=== PATIENT | female | born 1945 | race Caucasian/White ===

== ENCOUNTER 2017-03-28 13:30 | Emergency (ER) | payer MEDICARE ==
[2017-03-28 14:52] LABS: BASOPHILS % (AUTO) 0.6 % (0.0-5.0); HEMATOCRIT 37.7 % (36-48); LYMPHOCYTES % (AUTO) 11.8 % (21.0-51.0); MEAN CORPUSCULAR HGB CONC 34.3 g/dL (32.0-36.0); MEAN CORPUSCULAR VOLUME 96.2 fL (79-99); MONOCYTES % (AUTO) 12.9 % (3.0-13.0); NEUTROPHILS % (AUTO) 73.7 % (40.0-77.0); PLATELET COUNT (AUTO) 303 K/uL (130-400); RED BLOOD CELL COUNT(AUTO) 3.92 MIL/uL (4.00-5.50); RED CELL DISTRIBUTION WIDTH 13.9 % (11.0-15.5); WHITE BLOOD COUNT (AUTO) 6.1 K/uL (4.8-10.8)
[2017-03-28 15:09] LABS: CREATININE 0.8 mg/dL (0.5-1.5); POTASSIUM 3.8 mmol/L (3.5-5.1)
[2017-03-28 15:13] LABS: ALBUMIN 3.6 g/dL (3.5-5.0); BILIRUBIN,TOTAL 0.3 mg/dL (0.2-1.0)
[2017-03-28 15:26] LABS: B-TYPE NATRIURETIC PEPTIDE 7 pg/mL (0-100)
[2017-03-28] MEDS ORDERED: OSELTAMIVIR PHOSPHATE 75 MG CAP ONE (16:50)
== END 2017-03-28 18:09 | disposition home or self-care (01) ==
LOC: EDH 13:30
DX: J10.1 Influenza due to other identified influenza virus with other respiratory manifestations (principal); D84.9 Immunodeficiency, unspecified; I10 Essential (primary) hypertension; Z98.890 Other specified postprocedural states
CPT/HCPCS: 36415; 71020; 80053; 83880; 84484; 85025; 87804; 93005

== ENCOUNTER 2018-03-25 09:52 | Emergency (ER) | payer MEDICARE ==
[2018-03-25 10:32] LABS: BASOPHILS % (AUTO) 0.4 % (0.0-5.0); HEMATOCRIT 35.8 % (36-48); LYMPHOCYTES % (AUTO) 11.5 % (21.0-51.0); MEAN CORPUSCULAR HEMOGLOBIN 32.8 pg (27.0-33.0); MEAN CORPUSCULAR VOLUME 96.4 fL (79-99); MONOCYTES % (AUTO) 12.8 % (3.0-13.0); NEUTROPHILS % (AUTO) 73.3 % (40.0-77.0); PLATELET COUNT (AUTO) 244 K/uL (130-400); RED BLOOD CELL COUNT(AUTO) 3.71 MIL/uL (4.00-5.50); RED CELL DISTRIBUTION WIDTH 13.9 % (11.0-15.5); WHITE BLOOD COUNT (AUTO) 5.7 K/uL (4.8-10.8)
[2018-03-25 10:33] LABS: APPEARANCE,URINE Clear (CLEAR); BILIRUBIN,URINE Negative (NEGATIVE); COLOR,URINE Yellow (YELLOW); GLUCOSE, URINE (UA) Negative (NEGATIVE); KETONES,URINE Negative (NEGATIVE); LEUKOCYTE ESTERASE ,URINE Negative (NEGATIVE); NITRATE,URINE Negative (NEGATIVE); OCCULT BLOOD,URINE Negative (NEGATIVE); PH,URINE 7.5 (5.0-8.0); PROTEIN,URINE Negative (NEGATIVE); UROBILINOGEN,URINE 0.2 mg/dL (0.2-1.0)
[2018-03-25 10:47] LABS: CREATININE 0.7 mg/dL (0.5-1.5); POTASSIUM 4.4 mmol/L (3.5-5.1)
[2018-03-25 10:51] LABS: ALBUMIN 3.7 g/dL (3.5-5.0); BILIRUBIN,TOTAL 0.3 mg/dL (0.2-1.0); TOTAL PROTEIN, SERUM 8.1 g/dL (6.0-8.3)
[2018-03-25 10:54] LABS: RAPID GROUP A STREP NEGATIVE (NEGATIVE)
[2018-03-25 11:32] LABS: INR 0.94 (0.85-1.15); PROTHROMBIN TIME 9.9 SEC (9.6-11.6)
[2018-03-25] MEDS ORDERED: ACETAMINOPHEN 325 MG TAB ONE (12:33)
== END 2018-03-25 13:58 | disposition home or self-care (01) ==
LOC: EDH 09:52
DX: C85.90 Non-Hodgkin lymphoma, unspecified, unspecified site (principal); D80.3 Selective deficiency of immunoglobulin G [IgG] subclasses; R50.9 Fever, unspecified; I10 Essential (primary) hypertension; Z90.710 Acquired absence of both cervix and uterus; Z98.890 Other specified postprocedural states
CPT/HCPCS: 36415; 71045; 80053; 81003; 82550; 83605; 84484; 85025; 85610; 85730; 87040; 87804; 87880; 93005

== ENCOUNTER → 2023-05-03 | Outpatient (CLI) | payer OTHER | END | disposition home or self-care (01) | LOC: OIH 08:25 | PROVIDERS: ATTEND Nurse Practitioner Adult Health | DX: Z13.6 Encounter for screening for cardiovascular disorders (principal) | CPT/HCPCS: 75571 ==

== ENCOUNTER → 2023-06-10 | Outpatient (CLI) | payer MEDICARE | END | disposition home or self-care (01) | LOC: SHCH 14:02 | PROVIDERS: ATTEND Internal Medicine Cardiovascular Disease | DX: I65.23 Occlusion and stenosis of bilateral carotid arteries (principal); I10 Essential (primary) hypertension; R07.9 Chest pain, unspecified; Z79.899 Other long term (current) drug therapy | CPT/HCPCS: 93880 ==

== ENCOUNTER → 2023-06-14 | Outpatient (CLI) | payer MEDICARE ==
[2023-06-14] MEDS: REGADENOSON 0.4 MG/5 ML PF SYG IVP ONE (14:50)
== END | disposition home or self-care (01) ==
LOC: SHCH 08:06
PROVIDERS: ATTEND Internal Medicine Cardiovascular Disease
DX: I35.9 Nonrheumatic aortic valve disorder, unspecified (principal); R07.9 Chest pain, unspecified; I10 Essential (primary) hypertension
CPT/HCPCS: 78452; 96374; 93017; J2785; A9500 ×2

== ENCOUNTER → 2023-06-22 | Outpatient (CLI) | payer MEDICARE | END | disposition home or self-care (01) | LOC: SHCH 08:11 | PROVIDERS: ATTEND Internal Medicine Cardiovascular Disease | DX: I35.0 Nonrheumatic aortic (valve) stenosis (principal); I35.8 Other nonrheumatic aortic valve disorders; I10 Essential (primary) hypertension; R07.9 Chest pain, unspecified | CPT/HCPCS: 93306 ==

== ENCOUNTER → 2024-04-05 | Outpatient (CLI) | payer MEDICARE ==
--- NOTE | 2024-04-06 08:10 | HMCSR ---
APPROVED REPORT EXAM: Two-dimensional and M-mode echocardiogram with Doppler and color Doppler. INDICATION ICD: I10.0 Essential (primary) Hypertension 2D Dimensions RVDd4.2 cmLVEF(%)57.7 (>50%)LVED Vol(simp.)112.0 mL IVSd1.2 (0.7-1.1cm)FS(%)30 %LVES Vol(simp.)48.0 mL LVDd4.2 (3.8-5.6cm)Ao Root(2D)3.3 (2.0-3.7cm)LVEF(%, simp.)57 % PWd1.2 (0.7-1.1cm)LVOT diam1.9 (1.8-2.4cm)LA ESV INDEX (BP)37.95 mL/m2 LVDs2.9 (2.5-4.0cm)IVC diam1.9 cm Aortic Valve AoV Vmax1.8 m/Ethan Peak GR13.0 mmHgLVOT Vmax1.3 m/s AoV VTI0.4 mAo Mean GR7.1 mmHgLVOT VTI0.31 m JUANCARLOS (VMAX)1.9 cm2Al P1/2T327 msAVA (VTI) 1.9 cm2 Mitral Valve MV E Vmax90.0 cm/sDECEL Axqb337 ms MV A Muvn225.0 cm/sP 1/2 T54 ms E/A ratio0.7MVA (PHT)4.0 cm2 MR Max PG128 mmHg TDI E/E' Gvnvux55.3E/E' Dpuznap77.2 Pulmonary Valve PV Vmax1.3 m/sPV VTI0.26 mPV Mean GR4 mmHg PV Peak GR6.5 mmHg Tricuspid Valve TR Vmax2.1 m/sRAP (EST) 8 wwIkQCNS06.4 mmHg TR Peak GR18.4 mmHg Left Ventricle Left ventricular cavity size is normal. There is normal LV segmental wall motion. There is mild christian ntric left ventricular hypertrophy. LVEF is 55-60%. No left ventricle thrombus noted on this study. G rade 1 diastolic dysfunction Right Ventricle The right ventricle is normal size. The right ventricular systolic function is normal. Atria The left atrium is mildly dilated. The right atrium size is normal. Aortic Valve Aortic valve is trileaflet. Aortic valve is mildly calcified. Trace aortic regurgitation. Calculated aortic valve area is 1.9 cm2 with maximum pressure gradient of 13 mmHg and mean pressure gradient of 7.1 mmHg. Mitral Valve Mitral valve leaflets are mildly sclerotic but opens well. Mitral annular calcification is mild. Mitr al regurgitation is trace to mild. There is no mitral valve stenosis. Tricuspid Valve The tricuspid valve leaflets appear normal. There is trace tricuspid regurgitation. Pulmonic Valve Pulmonic valve is not well visualized. There is trace pulmonic valvular regurgitation. Great Vessels The aortic root is normal in size. IVC is dilated and collapses >50% with inspiration. Pericardium No pericardial effusion. Conclusion Left ventricular cavity size is normal. There is mild concentric left ventricular hypertrophy. LVEF is 55-60%. Grade 1 diastolic dysfunction The right ventricle is normal size. The left atrium is mildly dilated. Aortic valve is trileaflet. Aortic valve is mildly calcified. Trace aortic regurgitation. Calculated aortic valve area is 1.9 cm2 with maximum pressure gradient of 13 mmHg and mean pressure g radient of 7.1 mmHg. Mitral valve leaflets are mildly sclerotic but opens well. Mitral annular calcification is mild. Mitral regurgitation is trace to mild. There is trace tricuspid regurgitation. There is trace pulmonic valvular regurgitation. The aortic root is normal in size. IVC is dilated and collapses >50% with inspiration. No pericardial effusion.
--- NOTE | 2024-04-06 08:11 | HMCSR ---
APPROVED REPORT Bilateral Lower Extremity Venous Study for DVT., Venous Competence. Indications Lower Extremity Edema: , i87.1, i87.2 Vein Imaging CFV (R): Normal flow, augmentation and compression. No evidence of DVT. 10.7mm 1533ms of reflux. SFJ (R): Normal flow, augmentation and compression. No evidence of DVT. FEM (R): Normal flow, augmentation and compression. No evidence of DVT. POP (R): Normal flow, augmentation and compression. No evidence of DVT. 2939ms of reflux. DFV (R): Normal flow, augmentation and compression. No evidence of DVT. PTV (R): Normal flow, augmentation and compression. No evidence of DVT. Peroneals (R): Normal flow, augmentation and compression. No evidence of DVT. CFV (L): Normal flow, augmentation and compression. No evidence of DVT. 11.9mm 1139ms of reflux. SFJ (L): Normal flow, augmentation and compression. No evidence of DVT. FEM (L): Normal flow, augmentation and compression. No evidence of DVT. POP (L): Normal flow, augmentation and compression. No evidence of DVT. DFV (L): Normal flow, augmentation and compression. No evidence of DVT. PTV (L): Normal flow, augmentation and compression. No evidence of DVT. Peroneals (L): Normal flow, augmentation and compression. No evidence of DVT. Technologist Impression Deep veins of the bilateral lower extremiteis appear patent and compressible without thrombus. Deep venous reflux noted in the RCFV, RPopliteal and LCFV. Superficial venous insufficiency noted in the residual RGSV, residual RSSV and LGSV at junction. RGSV junction 5.6mm 2039ms thigh - not seen knee 4.2mm 3756ms calf 3.1mm 0.0ms RSSV prox - not seen mid 2.8mm 1661ms LGSV junction 5.8mm 1000ms thigh - not seen knee- not seen calf 3.9mm 0.0ms LSSV prox - not seen mid 2.8mm 0.0ms Conclusion Deep veins of the bilateral lower extremiteis appear patent and compressible without thrombus. Deep venous reflux noted in the RCFV, RPopliteal and LCFV. Superficial venous insufficiency noted in the residual RGSV, residual RSSV and LGSV at junction. Conclusion Deep veins of the bilateral lower extremiteis appear patent and compressible without thrombus. Deep venous reflux noted in the RCFV, RPopliteal and LCFV. Superficial venous insufficiency noted in the residual RGSV, residual RSSV and LGSV at junction.
== END | disposition home or self-care (01) ==
LOC: SHCH 07:34
PROVIDERS: ATTEND Internal Medicine Cardiovascular Disease
DX: I08.0 Rheumatic disorders of both mitral and aortic valves (principal); I11.9 Hypertensive heart disease without heart failure; I70.0 Atherosclerosis of aorta; I87.2 Venous insufficiency (chronic) (peripheral); I87.1 Compression of vein
CPT/HCPCS: 93306; 93970

== ENCOUNTER → 2024-04-21 | Outpatient (CLI) | payer MEDICARE ==
--- NOTE | 2024-04-25 11:43 | HMCSR ---
APPROVED REPORT Indications Postprandial abdominal pain Assessment Origin Proximal Mid D istal Superior Mesenteric A. PSV 208.80cm/s PSV 263.10cm/s PSV 296.40cm/s EDV 40.80cm/s EDV 25.90cm/s EDV 3 3.60cm/s Ratio 1.32Ratio 1.66Ratio 1.87 Celiac [place] PSV 181.30cm/s PSV 118.80cm/s PSV 162.20cm/s EDV 47.00cm/s EDV 51.70cm/s EDV 3 6.40cm/s Ratio 1.14Ratio 0.75Ratio 1.02 Inferior Mesenteric A. PSV 272.00cm/s PSV 232.10cm/s PSV 201.40cm/s Ratio 1.72Ratio 1.63Ratio 1.41 Aortic Duplex A/PTransverseLongitudinal Proximal Aorta 1.78cm1.72cm1.57cm Mid Aorta 1.21cm1.25cm1.12cm Distal Aorta 1.15cm1.47cm1.34cm Aortic Doppler VelocityWaveform Proximal Aorta 158.50 cm/sec Aorta Mid. 125.40 cm/sec Distal Aorta 142.00 cm/sec Technologist Impression Imaging reveals patent mesenteric arteries. No evidence of significant stenosis and/or occlusion. Normal flow visualized. Dimensions of the aorta are within normal limits, although atherosclerotic plaque is noted with veloc ites >100 cm/sec. Conclusion Imaging reveals patent mesenteric arteries. No evidence of significant stenosis and/or occlusion. Normal flow visualized. Dimensions of the aorta are within normal limits, although atherosclerotic plaque is noted with veloc ites >100 cm/sec. Conclusion Imaging reveals patent mesenteric arteries. No evidence of significant stenosis and/or occlusion. Normal flow visualized. Dimensions of the aorta are within normal limits, although atherosclerotic plaque is noted with veloc ites >100 cm/sec.
--- NOTE | 2024-04-25 11:49 | HMCSR ---
APPROVED REPORT Laterality: Bilateral Indications r09.89 Doppler Spectral Velocity Analysis PSV / EDVPSV / EDV ECA (R) 145 / cm/sECA (L) 143 / cm/s dICA (R) 123 / 48 cm/sdICA (L) 123 / 42 cm/s Juan (R) 131 / 20 cm/smICA (L) 95 / 33 cm/s pICA (R) 183 / 46 cm/spICA (L) 113 / 36 cm/s dCCA (R) 99 / 31 cm/sdCCA (L) 87 / 26 cm/s mCCA (R) 64 / 18 cm/smCCA (L) 84 / 17 cm/s pCCA (R) 70 / 17 cm/spCCA (L) 118 / 31 cm/s Vert (R) 58 / cm/sVert (L) 55 / cm/s Subl. (R) 226 / cm/sSubl. (L) 235 / cm/s ICA/CCA 1.85ICA/CCA 1.04 Technologist Impression Mild heterogenous plaque noted in the bilateral carotid bulbs. LAURA shows evidence of 50-69% stenosis. LICA appears patent, without hemodynamic significance. Bilateral vertebral arteries appear antegrade. Velocities of the right and left subclavian arteries are suggestive of >50% stenosis. Conclusion Mild heterogenous plaque noted in the bilateral carotid bulbs. LAURA shows evidence of 50-69% stenosis. LICA appears patent, without hemodynamic significance. Bilateral vertebral arteries appear antegrade. Velocities of the right and left subclavian arteries are suggestive of >50% stenosis. Conclusion Mild heterogenous plaque noted in the bilateral carotid bulbs. LAURA shows evidence of 50-69% stenosis. LICA appears patent, without hemodynamic significance. Bilateral vertebral arteries appear antegrade. Velocities of the right and left subclavian arteries are suggestive of >50% stenosis.
== END | disposition home or self-care (01) ==
LOC: SHCH 08:07
PROVIDERS: ATTEND Internal Medicine Cardiovascular Disease
DX: I25.119 Atherosclerotic heart disease of native coronary artery with unspecified angina pectoris (principal); R09.89 Other specified symptoms and signs involving the circulatory and respiratory systems; I70.0 Atherosclerosis of aorta
CPT/HCPCS: 93880; 93975

== ENCOUNTER 2024-05-16 11:58 | Day surgery (SDC) | payer MEDICARE ==
[2024-05-11 11:52] LABS: BASOPHILS # (AUTO) 0.05 K/uL (0.00-0.20); BASOPHILS % (AUTO) 0.7 % (0.0-5.0); EOSINOPHILS # (AUTO) 0.23 K/uL (0.00-0.70); HEMATOCRIT 34.8 % (36-48); IMMATURE GRANULOCYTE ABSOLUTE 0.03 K/uL (0-1); LYMPHOCYTES # (AUTO) 1.3 K/uL (1.0-4.8); LYMPHOCYTES % (AUTO) 17.1 % (21.0-51.0); MEAN CORPUSCULAR HEMOGLOBIN 30.3 pg (27.0-33.0); MEAN CORPUSCULAR HGB CONC 31.3 g/dL (32.0-36.0); MEAN CORPUSCULAR VOLUME 96.7 fL (79-99); MONOCYTES # (AUTO) 0.7 K/uL (0.1-1.0); MONOCYTES % (AUTO) 9.1 % (3.0-13.0); NEUTROPHILS # (AUTO) 5.4 K/uL (1.8-7.7); NEUTROPHILS % (AUTO) 69.7 % (40.0-77.0); PLATELET COUNT (AUTO) 368 K/uL (130-400); RED CELL DISTRIBUTION WIDTH 13.4 % (11.0-15.5); WHITE BLOOD COUNT (AUTO) 7.7 K/uL (4.8-10.8)
[2024-05-11 11:59] LABS: ADD UA MICROSCOPIC NO; APPEARANCE,URINE CLEAR (CLEAR); BILIRUBIN,URINE NEGATIVE (NEGATIVE); COLOR,URINE COLORLESS (YELLOW); GLUCOSE, URINE (UA) NEGATIVE (NEGATIVE); KETONES,URINE NEGATIVE (NEGATIVE); LEUKOCYTE ESTERASE ,URINE NEGATIVE Leu/uL (NEGATIVE); NITRATE,URINE NEGATIVE (NEGATIVE); OCCULT BLOOD,URINE NEGATIVE (NEGATIVE); PH,URINE 5.5 (5.0-8.0); PROTEIN,URINE NEGATIVE (NEGATIVE); UROBILINOGEN,URINE 0.2 mg/dL (0.2-1.0)
[2024-05-11 12:00] VITALS: BP 140/52; PULSE 86; RESP 18; TEMP 97.3
[2024-05-11 12:03] LABS: CREATININE 1.1 mg/dL (0.5-1.0); POTASSIUM 4.1 mmol/L (3.5-5.1)
[2024-05-11 12:08] LABS: INR <= 0.93 (0.85-1.15); PROTHROMBIN TIME 10.4 SEC (9.6-11.6)
[2024-05-11 12:09] LABS: PARTIAL THROMBOPLASTIN TIME 25.9 SEC (26.3-35.5)
--- NOTE | 2024-05-11 12:27 | HMCIMG ---
CHEST 1VW HISTORY: Preop COMPARISON: 03/25/2018 FINDINGS: A frontal projection of the chest was obtained. No acute pulmonary infiltrates is seen. The heart is normal in size. Degenerative changes are seen. Aortic calcifications are seen. Left shoulder arthroplasty changes are seen. No evidence of aortic calcification is seen. IMPRESSION: 1. No acute pulmonary infiltrate is seen.
--- NOTE | 2024-05-11 12:29 | EKG ---
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 : 1945 Requested By: Milind SORTO Order Number: [id number] Reading MD: Marissa Pérez Measurements Intervals [place] Rate: 81 P: 60 SD: 168 QRS: -3 QRSD: 138 T: 10 QT: 392 QTc: 456 Interpretive Statements Sinus rhythm Probable left atrial enlargement Right bundle branch block Left ventricular hypertrophy Compared to ECG 03/25/2018 10:36:24 Right bundle-branch block now present Left ventricular hypertrophy now present Incomplete right bundle-branch block no longer present Electronically Signed On 05-11-2024 17:28:08 MARKETING [employer]LYT[employer] LEAD by Marissa Pérez Please click the below link to view image of tracing.
[2024-05-11 12:33] LABS: B-TYPE NATRIURETIC PEPTIDE 30 pg/mL (0-100)
[2024-05-16] VITALS (9 sets, daily range): BP systolic 122–152; BP diastolic 44–60; PULSE 78–84; RESP 15–18; TEMP 97.9
[~2024-05-16] VITALS: Ht 157.5 cm; Wt 68.3 kg
[~2024-05-16 11:58] MED LIST: ASPI-1443 PO; BUME1TAB6 PO; CARB-283 OD; FERS325 PO; IRBE300T26 PO; IVIG IV; LANS30CA55 PO; MAGN400C PO; MVI PO; NORT10CA2 PO; ROSU20TA98 PO; ZOLP10TA2 PO
[2024-05-16] MEDS: 0.9%NACL 1000ML 1,000 ML IV SCH (13:07)
[2024-05-16] MEDS ORDERED: BRIM5DRO21 OP (13:11)
[2024-05-16] MEDS ORDERED: LIDOCAINE HCL 400MG/20ML VIAL ONE (17:04)
[2024-05-16] MEDS ORDERED: HEParin 10,000 UNIT/10ML (1,000 UNIT/ML) VIAL ONE (17:05)
[2024-05-16] MEDS ORDERED: HEParin-NS 1,000 UNIT/500 ML 1,000 ML IV ONE (17:05)
[2024-05-16] MEDS ORDERED: NITROGLYCERIN 50MG VIAL ONE (17:05)
[2024-05-16] MEDS ORDERED: IOHEXOL 350 MG/ML 100ML INFUS..BTL IV ONE (17:06)
[2024-05-16] MEDS ORDERED: MIDAZOLAM HCL 1 MG/ML 2ML VIAL ONE ×3 (17:47→18:02)
[2024-05-16] MEDS ORDERED: MEPERIDINE-PF 50 MG/ML SYG ONE ×2 (17:47→17:52)
--- NOTE | 2024-05-16 18:55 | CCATH ---
PROCEDURES: * Left heart catheterization. * Selective right and left coronary arteriogram. * Conscious sedation for 45 minutes. INDICATIONS: * Recurrent angina. * Abnormal exercise tolerance test. COMPLICATIONS: None. TOTAL CONTRAST: Approximately 80 mL. APPROACH: Right radial approach. DESCRIPTION OF PROCEDURE: The patient was taken to cardiac catheterization lab after appropriate operative consents were signed. She was prepped and draped in the usual fashion. After conscious sedation was administered, the right radial artery region was infiltrated with 2% Xylocaine without epinephrine. A 6-Vincentian slender sheath was advanced in retrograde fashion after cannulation of the vessel by the modified Seldinger technique. At this point, a TIG 4 catheter was advanced and over an indwelling wire. This was positioned in the left ventricular cavity. Left ventricular end-diastolic pressure measurement was obtained and pullback was performed revealing no aortic stenosis. Ventriculography was deferred as the patient has preserved left ventricular systolic function by echocardiography. The catheter was then engaged in the ostium of the left main coronary artery. This was imaged in multiplane. Left main was a short vessel that was large in caliber and free of disease. It bifurcated into LAD, circumflex. The LAD was a large vessel that had a fairly tortuous course with multiple proximal to mid lesion that rated about 30-40%. The first diagonal was large and normal. The second diagonal was normal. Circumflex coronary artery was moderately large vessel that gave rise to a large tortuous obtuse marginal 1 and ongoing circ with a smaller OM2. No significant stenosis was identified in the circumflex system. At this point, an FR3.5, 6-Vincentian catheter was advanced over an indwelling wire and engaged to the ostium of the right coronary artery. Imaging was obtained in multiplane. Right coronary artery was a large vessel that was calcified that gave rise to an acute marginal, a branching PDA and a PLVB. The proximal to mid portion of the right coronary artery had a long segment of disease approximately 50-60%. The acute marginal branch was a small vessel that had an ostial 80% lesion. The distal RCA bifurcated into a PDA, which was a branching vessel and a PLVB. The PLVB was normal. The PDA had a 40% lesion in its main body before it bifurcated and the inferior most branch had 70% lesion in the mid to distal segment. Given the nature of the patient's symptoms and her findings, an IFR was performed in the right coronary artery and measurements were obtained and none of them were measured at less than 0.9. We measured 0.9, 0.91 and 0.92 across the lesion. Given that, medical management was recommended. The patient tolerated the procedure well. Radial band was applied after the catheter was removed. 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 FINAL IMPRESSION: * Coronary artery disease. * Preserved left ventricular systolic function by noninvasive studies. * No aortic stenosis. The patient will be maintained on medical management and followed as an outpatient. TID: [id number] RECEIPT: [id number]
--- NOTE | 2024-05-16 19:35 | NUR ---
RE: VASC BAND VASC BAND IN PLACE TO RIGHT WRIST, NO BLEEDING OR HEMATOMA NOTED. WRIST IMMOBILIZER IN PLACE WELL. 2ML AIR REMOVED FROM VASC BAND, PATIENT TOLERATED WELL. NO BLEEDING NOTED.
--- NOTE | 2024-05-16 20:05 | NUR ---
RE: VASC BAND VASC BAND IN PLACE TO RIGHT WRIST, NO BLEEDING OR HEMATOMA NOTED. WRIST IMMOBILIZER IN PLACE WELL. 2ML AIR REMOVED FROM VASC BAND, PATIENT TOLERATED WELL. OOZING NOTED FROM SITE. 4ML AIR INJECTED INTO VASC BAND.
--- NOTE | 2024-05-16 20:40 | NUR ---
RE: VASC BAND VASC BAND IN PLACE TO RIGHT WRIST, NO BLEEDING OR HEMATOMA NOTED. WRIST IMMOBILIZER IN PLACE WELL. 2ML AIR REMOVED FROM VASC BAND, PATIENT TOLERATED WELL. NO BLEEDING OR HEMATOMA NOTED.
--- NOTE | 2024-05-16 21:30 | NUR ---
RE: VASC BAND VASC BAND IN PLACE TO RIGHT WRIST, NO BLEEDING OR HEMATOMA NOTED. WRIST IMMOBILIZER IN PLACE WELL. 2ML AIR REMOVED FROM VASC BAND, PATIENT TOLERATED WELL. NO BLEEDING OR HEMATOMA NOTED. VASC BAND REMOVED. COVERED RADIAL SITE WITH STERILE GAUZE AND TEGADERM ADHESIVE. NO BLEEDING OR HEMATOMA NOTED.
--- NOTE | 2024-05-16 21:44 | NUR ---
PATIENT DISCHARGED FROM FACILITY VIA WHEELCHAIR BY [facility] AND ASSISTED INTO PRIVATE VEHICLE DRIVEN BY FRIEND
== END 2024-05-16 21:46 | disposition home or self-care (01) ==
LOC: DAH 11:58
PROVIDERS: ATTEND Internal Medicine Cardiovascular Disease
DX: I25.118 Atherosclerotic heart disease of native coronary artery with other forms of angina pectoris (principal); R94.39 Abnormal result of other cardiovascular function study; I25.5 Ischemic cardiomyopathy; R07.89 Other chest pain; I45.10 Unspecified right bundle-branch block; I12.9 Hypertensive chronic kidney disease with stage 1 through stage 4 chronic kidney disease, or unspecified chronic kidney disease; E11.22 Type 2 diabetes mellitus with diabetic chronic kidney disease; N18.9 Chronic kidney disease, unspecified; E78.5 Hyperlipidemia, unspecified; E66.9 Obesity, unspecified; G47.00 Insomnia, unspecified; M47.816 Spondylosis without myelopathy or radiculopathy, lumbar region; Z79.01 Long term (current) use of anticoagulants; Z90.710 Acquired absence of both cervix and uterus; Z79.899 Other long term (current) drug therapy
CPT/HCPCS: 80048; 83880; 85025; 85610; 85730; 81003; 36415 ×2; 71045; 93005; 93458; 93571; 85347; C1769 ×2; C1887; A4649; C1894; J3490 ×2; J7030; J1644 ×2; J2250 ×3; J2175 ×2; Q9967; A4215; A4222; A4221; A4663; A4216; A4606; Q9965; A4223 ×3; 99156; 99157